=== PATIENT | male | born 1960 | race Caucasian/White ===

== ENCOUNTER 2024-03-16 06:09 | Day surgery (SDC) | payer MEDICAID ==
[2024-03-16] MEDS ORDERED: Rocuronium 50 MG/5 ML Vial ONE (07:02)
[2024-03-16] MEDS ORDERED: Succinylcholine 200 MG/10 ML MDV ONE (07:02)
[2024-03-16] MEDS ORDERED: Neostigmine Methylsulfate 10 MG/10 ML MDV ONE (07:02)
[2024-03-16] MEDS ORDERED: Glycopyrrolate 0.2 MG/ML 5 ML MDV ONE (07:02)
[2024-03-16] MEDS ORDERED: Ondansetron 4 MG/2 ML SDV ONE (07:02)
[2024-03-16] MEDS ORDERED: Propofol 200 MG/20 ML SDV ONE (07:02)
[2024-03-16] MEDS ORDERED: Dexamethasone 4 MG/ML SDV ONE (07:02)
[2024-03-16] MEDS ORDERED: fentaNYL 250 MCG/5 ML SDV ONE ×2 (07:04→07:43)
[2024-03-16] MEDS: Lactated Ringers 1,000 ML IV SCH (07:21)
[2024-03-16] MEDS: Scopalamine 1mg/3day Transdermal Patch TOP SCH (07:24)
[2024-03-16] MEDS: Clindamycin in 0.9 % Sod Chlor 900 MG in Premix Bag 1 BAG IV ONE (07:30)
[2024-03-16] MEDS: Bupivacaine 0.25%/EPINEPHrine 1:200,000 30 ML SDV ONE (08:32)
[2024-03-16] MEDS: HYDROmorphone 0.5 MG/0.5 ML Syringe IVPUSH PRN (10:34)
[2024-03-16] MEDS: Acetaminophen/HYDROcodone 325-5 MG Tab PO PRN (11:10)
[2024-03-16] MEDS: Ketorolac 30 MG/ML SDV IVPUSH ONE (12:33)
== END 2024-03-16 15:01 | disposition home or self-care (01) ==
LOC: JP.SDS 06:09
PROVIDERS: ATTEND Surgery
DX: K40.20 Bilateral inguinal hernia, without obstruction or gangrene, not specified as recurrent (principal); D17.6 Benign lipomatous neoplasm of spermatic cord; F41.1 Generalized anxiety disorder; Z79.899 Other long term (current) drug therapy; Z88.0 Allergy status to penicillin
CPT/HCPCS: A9270-GY; C1781; J0330; J0737; J1100; J1596; J1885; J2405; J2704; J2710; J3010; J3490; J7120